=== PATIENT | female | born 1990 | race Two or more races ===

== ENCOUNTER 2018-04-11 11:35 | Emergency (ER) | payer MEDICAID ==
[~2018-04-11] VITALS: Ht 160 cm; Wt 99.8 kg
[~2018-04-11 11:35] MED LIST: HYDR-1421
[2018-04-11 13:06] LABS: Basophils # (auto) 0.1 uL; Basophils % (auto) 0.7 % (0.0-2.0); Eosinophils # (auto) 0.1 uL; Eosinophils % (auto) 0.5 % (0.0-7.0); Hematocrit 40.9 % (36.0-46.0); Hemoglobin 13.8 g/dL (12.2-16.2); Lymphocytes # (auto) 2.9 uL; Lymphocytes % (auto) 27.5 % (10.0-50.0); Mean Corpuscular Hemoglobin 28.9 pg (28.0-32.0); Mean Corpuscular Hgb Conc. 33.9 g/dL (32.0-36.0); Mean Corpuscular Volume 85.4 fL (80.0-100.0); Monocytes # (auto) 0.5 uL; Monocytes % (auto) 4.7 % (0.0-12.0); Neutrophils % (auto) 66.6 % (37.0-80.0); Platelet Count (auto) 255 10^3/uL (140-450); Red Blood Cells 4.79 10^6/uL (4.0-5.20); Red Cell Distribution Width 13.6 % (11.8-14.3); White Blood Cell 10.5 10^3/uL (4.4-10.8)
[2018-04-11 13:27] LABS: Albumin 3.3 g/dL (3.4-5.0); Anion Gap 5 (5-15); Blood Urea Nitrogen 5 mg/dL (7-18); Calcium 8.8 mg/dL (8.5-10.1); Carbon Dioxide 24 mmol/L (21-32); Chloride 106 mmol/L (98-107); Glucose 92 mg/dL (74-106); Potassium 3.8 mmol/L (3.5-5.1); Sodium 135 mmol/L (136-145)
[2018-04-11 13:30] LABS: Alanine Aminotransferase 30 U/L (13-56); Alkaline Phosphatase 74 U/L (45-117); Aspartate Aminotransferase 24 U/L (15-37); BUN/Creatinine Ratio 8.6; Bilirubin, Total 0.3 mg/dL (0.2-1.0); GFR African American > 60 mL/min; GFR Non-African American > 60 mL/min; Total Protein 7.7 g/dL (6.4-8.2)
[2018-04-11 13:45] LABS: Thyroid Stimulating Hormone 3.23 uIU/mL (0.358-3.74)
[2018-04-11 14:44] VITALS: BP 115/82
== END 2018-04-11 14:45 | disposition home or self-care (01) ==
LOC: ER 11:35
DX: O26.891 Other specified pregnancy related conditions, first trimester (principal); R51 Headache; Z3A.15 15 weeks gestation of pregnancy
CPT/HCPCS: 36415; 76805; 80053; 84443; 84702; 85025

== ENCOUNTER 2021-08-25 03:38 | Observation (INO) | payer MEDICAID ==
[2021-08-25] MEDS ORDERED: PREN-96 PO (07:13)
== END 2021-08-25 07:20 | disposition home or self-care (01) ==
LOC: LDRP 03:38
PROVIDERS: ADMIT Obstetrics & Gynecology; ATTEND Obstetrics & Gynecology
DX: O46.92 Antepartum hemorrhage, unspecified, second trimester (principal); N93.0 Postcoital and contact bleeding; Z3A.27 27 weeks gestation of pregnancy
CPT/HCPCS: 59025; 76815; 81002; 94760; G0378

== ENCOUNTER 2024-06-16 06:07 | Day surgery (SDC) | payer MEDICAID ==
[2024-06-13 13:59] LABS: Urine Bacteria None Seen /hpf (None Seen)
[2024-06-13 14:01] LABS: Basophils # (auto) 0.1 10 ^3/uL (0-0.2); Basophils % (auto) 1.5 % (0.0-2.0); Eosinophils # (auto) 0.1 10 ^3/uL (0-0.8); Eosinophils % (auto) 1.4 % (0.0-7.0); Hematocrit 42.3 % (36.0-46.0); Hemoglobin 14.2 g/dL (12.2-16.2); Lymphocytes # (auto) 2.6 10 ^3/uL (0.4-5.4); Lymphocytes % (auto) 42.5 % (10.0-50.0); Mean Corpuscular Hemoglobin 29.1 pg (28.0-32.0); Mean Corpuscular Hgb Conc. 33.6 g/dL (32.0-36.0); Mean Corpuscular Volume 86.7 fL (80.0-100.0); Monocytes # (auto) 0.4 10 ^3/uL (0-1.3); Neutrophils # (auto) 2.9 10 ^3/uL (1.6-8.6); Neutrophils % (auto) 47.6 % (37.0-80.0); Nucleated Red Blood Cells % 0.1 %; Platelet Count (auto) 238 10^3/uL (140-450); Red Blood Cells 4.88 10^6/uL (4.0-5.20); Red Cell Distribution Width 12.9 % (11.8-14.3); White Blood Cell 6.2 10^3/uL (4.4-10.8)
[2024-06-13 14:16] LABS: INR 1.01 (0.9-1.15); Partial Thromboplastin Time 29.6 SEC (24.5-34.5); Prothrombin Time 10.7 sec (9.3-11.8)
[2024-06-13 14:30] LABS: Urine Blood Negative /uL (Negative); Urine Clarity Clear (Clear); Urine Color Colorless (Yellow); Urine Protein, UAD Negative (Negative); Urine Specific Gravity 1.009 (1.001-1.035); Urine Squamous Epithelial Cell FEW /hpf (<5); Urine Urobilinogen Normal (Negative); Urine WBC 1 /HPF (0-5); Urine pH 6.5 (5.0-9.0)
[2024-06-13 14:34] LABS: Alkaline Phosphatase 89 U/L (46-116); Anion Gap 7 (5-15); Aspartate Aminotransferase 24 U/L (13-40); BUN/Creatinine Ratio 16.5 (10.0-20.0); Blood Urea Nitrogen 13 mg/dL (9-23); Calcium 10.3 mg/dL (8.7-10.4); Carbon Dioxide 28 mmol/L (20-31); Glucose 81 mg/dL (74-106); Potassium 4.6 mmol/L (3.5-5.1); Sodium 142 mmol/L (136-145)
[2024-06-13 14:35] LABS: Alanine Aminotransferase 53 U/L (7-40); Albumin 5.2 g/dL (3.2-4.8); Bilirubin, Total 0.3 mg/dL (0.2-1.0); Chloride 107 mmol/L (98-107)
--- NOTE | 2024-06-13 17:43 | DVHHP ---
ADMIT DATE: 06/16/2024 CHIEF COMPLAINT: Abnormal uterine bleeding. HISTORY OF PRESENT ILLNESS: The patient is a 34-year-old 3, para 3, admitted for D and C, hysteroscopy, endometrial ablation. The patient has had longstanding history of heavy bleeding. Her pelvic ultrasound reveals a 8 x 4 x 5 cm uterus, essentially normal. The patient has a history of thyroid. She does not want any other pregnancies. PAST MEDICAL HISTORY: Hypothyroidism. PAST SURGICAL HISTORY: Hernia, , abdominoplasty, breast lift, muscle repair. SOCIAL HISTORY: None. FAMILY HISTORY: None. OBSTETRIC AND GYNECOLOGIC HISTORY: One section, 2 normal vaginal deliveries. ALLERGIES: No known drug allergies. REVIEW OF SYSTEMS: Consistent with HPI. PHYSICAL EXAMINATION: VITAL SIGNS: Stable, afebrile. HEENT: Within normal limits. CARDIOVASCULAR: Regular rate and rhythm. LUNGS: Clear to auscultation. BREASTS: Symmetrical. No masses. ABDOMEN: Soft, nontender. PELVIC: External genitalia within normal limits. Vagina normal. Cervix grossly normal appearing. Uterus 8 weeks' size. Adnexa nonpalpable. EXTREMITIES: No clubbing, cyanosis or edema. IMPRESSION: Menorrhagia. PLAN: D and C, hysteroscopy, endometrial ablation. Informed consent obtained. Risks, complications of surgery including infection, bleeding, perforation of uterus, risks of anesthesia discussed with the patient. Options reviewed. All questions answered. The patient fully understands. Failure rate with this procedure discussed with the patient. The patient wishes to proceed with planned procedure. Sapphire Guerrier DO MZ/NEYMAR TID: [id number] RECEIPT: [id number]
[~2024-06-16] VITALS: Ht 157.5 cm; Wt 62.1 kg
[~2024-06-16 06:07] MED LIST changes: -HYDR-1421; +LEVO25TA6 PO
[2024-06-16] MEDS ORDERED: ceFAZolin 2 GM/D5W100ml 100 ML IV ONE (06:55)
[2024-06-16] MEDS ORDERED: fentaNYL CITRATE 100 MCG/2 ML VL ONE (06:57)
[2024-06-16] MEDS ORDERED: PROPOFOL 10 MG/ML 20 ML IV ONE (06:57)
[2024-06-16] MEDS ORDERED: HYDR-4072 PO (07:13)
[2024-06-16] MEDS ORDERED: IBUP-1456 PO (07:13)
[2024-06-16] MEDS ORDERED: ZOFR4T PO (07:13)
[2024-06-16] MEDS ORDERED: LACTATED RINGER'S 1,000 ML IV SCH (07:15)
[2024-06-16] MEDS ORDERED: ONDANSETRON HCL 4 MG/2 ML VIAL IV PRN (07:15)
[2024-06-16] MEDS ORDERED: ONDANSETRON HCL 4 MG/2 ML VIAL ONE (07:37)
[2024-06-16] MEDS ORDERED: DexAMETHasone SOD PHOS 10MG/1ML VIAL INJ ONE (07:37)
[2024-06-16 07:53] VITALS: TEMP 97.6; O2SAT 98
[2024-06-16] MEDS ORDERED: HYDROmorphone HCL 2 MG/ML VL/or syr IV PRN (08:00)
[2024-06-16] MEDS ORDERED: MEPERIDINE HCL (25 MG/ML) 1ML VIAL IV PRN (08:00)
[2024-06-16] MEDS ORDERED: ONDANSETRON HCL 4 MG/2 ML VIAL IV ONE (08:00)
[2024-06-16] MEDS: ACETAMINOPHEN IV 1000 MG/100ML (10MG/ML) IV PRN (08:08)
[2024-06-16 08:49] VITALS: BP 104/70; PULSE 71; RESP 13; O2SAT 99
--- NOTE | 2024-06-16 10:13 | DVHOP2 ---
Operative Report DATE OF OPERATION: 06/16/24 PREOPERATIVE DIAGNOSES: Abnormal uterine bleeding. POSTOPERATIVE DIAGNOSES: Abnormal uterine bleeding. SURGEON: Lex Guerrier D.O. ANESTHESIOLOGIST: flor TYPE OF ANESTHESIA : MAC. CONSENT: The patient was informed of the risks and benefits of the procedure. The patient was informed of the risks and benefits of the procedure. These include but are not limited to , complications of anesthesia, postoperative infection, incomplete relief of symptoms, recurrence of symptoms, damage to blood vessels, nerves and tendons, deep venous thrombosis, pulmonary embolism and possible need for repeat surgery in the future. FINDINGS: Cervix is normal. Uterus is 9 weeks size. Adnexa is nonpalpable. Hysteroscopy examination revealed no evidence of polyps or myomas. SPECIMEN: [facility] [place] COMPLICATIONS: None BLOOD PRODUCTS USED: None PROCEDURES: Dilation and curettage, hysteroscopy, and endometrial ablation. PROCEDURE IN DETAIL: The patient was taken to the operating room, where he was placed under MAC anesthesia. She was then prepped and draped in the usual ster ile manner in dorsal lithotomy position. Bladder was emptied using a straight catheter. Examination under anesthesia revealed the above findings. A weighted speculum was placed in the vagina. Anterior lip of the cervix was grasped using single tooth tenaculum. Cervix was dilated. Uterus was sounded to 9 cm. Hysteroscope was advanced. Survey of uterine cavity revealed no evidence of polyp or myoma. Hysteroscope was removed. Endometrial carotene was performed. Endometrial ablation procedure was then performed successfully. Post ablation hysteroscopic findings was consistent with excellent ablation of the entire cavity. No bleeding was noted. All the instruments were removed from the vagina and cervix. Patient tolerated procedure well. She was then taken to the recovery room in stable condition. CONDITION: Stable ESTIMATED BLOOD LOSS: 50 mL Visit Coding OBGYN Date of Service: Jun 16, 2024 Billing Provider: LEX GUERRIER DO REPLANTING MACHINE CREW Common Visit Codes: 82234-PTF/OBS DISCH DAY >30MIN REPLANTING MACHINE [employer]W Consultation Codes: 03629-Z/U INPATIENT CONSULT (MOD) REPLANTING MACHINE [employer]W Procedure Codes: 29711-CZZSLCYFALLY, SURG: W/EA LEX GUERRIER DO Jun 16, 2024 10:13
--- NOTE | 2024-06-16 10:52 | DVHDS2 ---
Physician Discharge Progress N Final Diagnosis: AUB Operations or Procedures: Operations or Procedures d and c,hysteroscopy endometrial ablation Condition on Discharge: Good Disposition: Home Discharge Instructions: Diet: Regular Activity: Light activity Follow Up/Referral: 1W Medications: DALE GARAY Follow Up Care: Specialist: 1w Discharge Statement: "Patient was advised to return to the ER or call 911 if any headaches, dizziness, shortness of breath, chest pain, abdominal pain, bleeding, fevers, or worsening of medical condition. Patient was counseled about treatment plan, medications, possible side effects, patientverbalized understanding. All questions were answered to the best of my ability. This discharge took greater then 30 minutes in planning, reviewing documentation, counseling the patient, and discussing with other team members." Visit Coding OBGYN Date of Service: Jun 16, 2024 Billing Provider: LEX LEWIS DO PATIENT FINANCIAL REPRESENTATIVE Common Visit Codes: 52532-HGM/OBS DISCH DAY >30MIN LEX LEWIS DO Jun 16, 2024 10:52
--- NOTE | 2024-06-16 10:52 | POSTOP ---
Post-Operative Note Post-Operative Note Preop Diagnosis aub Postop Diagnosis: AUB Operation performed d and c,hysteroscopy endometrial ablation Specimen emc Anesthesia: Mac Anesthesiologist: nuygen Blood Loss(fluid mgmt) 20ml Surgeon Lex Guerrier Implant na Complications & Mgmt none Date 06/16/24 Time 10:50 Visit Coding OBGYN Date of Service: Jun 16, 2024 Billing Provider: LEX GUERRIER DO COMBO WELDER Common Visit Codes: 13533-EQT/OBS SAME DATE (HIGH) COMBO WELDER Procedure Codes: 56364-GBPCGKYWDCJG, SURG: W/EA LEX GUERRIER DO Jun 16, 2024 10:51
== END 2024-06-16 09:15 | disposition home or self-care (01) ==
LOC: SUR 06:07
PROVIDERS: ATTEND Obstetrics & Gynecology
DX: N93.9 Abnormal uterine and vaginal bleeding, unspecified (principal); N92.0 Excessive and frequent menstruation with regular cycle; E03.9 Hypothyroidism, unspecified; Z79.890 Hormone replacement therapy; Z98.891 History of uterine scar from previous surgery; Z98.84 Bariatric surgery status
CPT/HCPCS: 36415; 58563; 80053; 81001; 81025; 84702; 85025; 85610; 85730; 86850; 86900; 86901; 88305; J1100; J2405; J2704; J3010; J0131